=== PATIENT | female | born 1960 | race Caucasian/White ===

== ENCOUNTER 2020-05-01 16:45 | Observation (INO) | payer OTHER ==
[~2020-05-01] VITALS: Ht 162.6 cm; Wt 65.0 kg
[2020-05-01 16:48] VITALS: BP 143/50
[2020-05-01 17:06] LABS: ABSOLUTE BASOPHILS 0.1 thou/uL (0.0-0.2); ABSOLUTE EOSINOPHILS 0.4 thou/uL (0.0-0.7); ABSOLUTE LYMPHOCYTES 3.7 thou/uL (0.8-5.3); ABSOLUTE MONOCYTES 0.8 thou/uL (0.0-1.2); ABSOLUTE NEUTROPHILS 8.5 thou/uL (1.6-8.1); BASOPHILS 0.5 %; EOSINOPHILS 3.1 %; HEMATOCRIT 37.3 % (37.0-47.0); HEMOGLOBIN 12.9 gm/dL (12.0-15.0); LYMPHOCYTES 27.4 %; MCH 28.8 pg (26.0-34.0); MCHC 34.5 g/dL (28.0-37.0); MCV 83.5 fL (80.0-100.0); MONOCYTES 5.7 %; MPV 7.5 fl. (7.2-11.1); NUCLEATED RBCS 0 /100WBC; PLATELET COUNT* 232 thou/uL (150-400); POLYS 63.3 %; RBC 4.47 mil/uL (4.20-5.00); RDW-CV 13.1 % (10.5-14.5); WBC 13.4 thou/uL (4.0-11.0)
[2020-05-01 17:19] LABS: CALCIUM 8.6 mg/dL (8.5-10.1); CREATININE 0.9 mg/dL (0.6-1.3)
[2020-05-01 17:29] LABS: ALBUMIN 3.2 g/dL (3.4-5.0); MAGNESIUM 1.7 mg/dL (1.8-2.4); TOTAL BILIRUBIN 0.5 mg/dL (<0.1-1.0); TOTAL PROTEIN 6.6 g/dL (6.4-8.2)
[2020-05-01 20:03] VITALS: BP 125/88
[2020-05-01 20:15] VITALS: BP 120/63
[2020-05-01] MEDS ORDERED: LISINOPRIL10 MG PO (20:39)
[2020-05-01] MEDS ORDERED: HYDROCHLOROTHIA25 M1 PO (20:40)
[2020-05-02] VITALS (15 sets, daily range): BP systolic 103–1138; BP diastolic 43–73
[2020-05-02 05:24] LABS: MAGNESIUM 1.9 mg/dL (1.8-2.4); POTASSIUM 3.4 mmol/L (3.5-5.1)
[2020-05-02 08:36] LABS: POTASSIUM 2.9 mmol/L (3.5-5.1)
--- NOTE | 2020-05-02 11:05 | EKG ---
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[employer]: SUGAR : 1960 Requested By: Mitesh Cisse Order Number: [id number] MD: Kg Stallworth Measurements Intervals [place] Rate: 104 P: 74 FL: 170 QRS: 52 QRSD: 85 T: 81 QT: 343 QTc: 452 Interpretive Statements Sinus tachycardia Borderline ST depression, diffuse leads Compared to ECG 12/01/2007 10:58:25 ST (T wave) deviation now present Sinus rhythm no longer present Electronically Signed On 05-02-2020 11:05:32 CHERRY PICKER OPERATOR by Kg Stallworth [email or web address] <ELECTRONICALLY SIGNED> By: Kg Stallworth MD, [facility] 05/02/20 1105 1650 1650 Kg Stallworth MD, FAC /EPI
--- NOTE | 2020-05-02 12:37 | CARD ---
[address] [address] CARDIAC CATH REPORT Name: JESSE LEES Room: [facility] Richard#: [id number] Admission: 05/01/20 Attend Phys: Pepe Drummond MD Discharge: Date of : 58 Report #: [id number] THIS REPORT FOR: cc: FAM - No family physician/PCP FAM - No family physician/PCP ~ Patrick Castillo MD [facility] APPROVED REPORT Study performed: 05/02/2020 10:45:33 Patient Details Patient Status: In-Patient Room #: 227 The patient is a 59 year-old female Event Personnel Ej Molina RTR Monitor, Matty Rizo Honeycutt, Jillian RN RN, Patrick Castillo Voc[employer] Education Director Procedures Performed Left Heart Cath w/or w/o Coronaries [id number] [facility] Hemostasis w/ Mynx Indication Abnormal ECG, Chest pain Admission/Lab Medications/Medications given during procedure Fentanyl IV 25 mcg, Midazolam (Versed) IV 1 mg, Lidocaine Subcut 20 ml Procedure Narrative The patient was brought electively to the Cardiac Catheterization Laboratory and was prepped and draped in a sterile manner. The right femoral was infiltrated with 2% Lidocaine subcutaneous anesthesia. A 6 Fr [place] sheath was inserted into the right femoral artery. Coronary angiography was performed using coronary diagnostic catheters. The right coronary system was accessed and visualized with a Diagnostic JR4 6Fr catheter. The left coronary system was accessed and visualized with a Diagnostic JL4 6Fr catheter. The left ventricle was accessed and visualized with a Diagnostic Pigtail 6Fr catheter. The patient tolerated the procedure well and there were no complications associated with the procedure. There was no hematoma. Intraoperative [place] [address] CARDIAC CATH REPORT Name: JESSE LEES Kamran Room: [address]#: [id number] Admission: 05/01/20 Attend Phys: Pepe Drummond MD Discharge: Date of : 58 Report #: [id number] Sedation start time: 1100 Case end Time: 1115 Fentanyl 50 mcg Versed 2 mg Fluoro Time: 2.5 minutes Dose: DAP 06794 cGycm2 465.32 mGy Contrast Type and Amount: Visipaque 100 ml Diagnostic Cath Left Main The left main coronary artery is normal and bifurcates into a left anterior descending and circumflex coronary arteries. LAD The left anterior descending coronary artery is 20% plaque in the midportion. The distal vessel appears free of significant disease but is small in caliber. Diagonal 1 A moderate-sized branch 1st diagonal is normal. Circumflex The circumflex coronary artery is 10% plaque proximally. The distal vessel appears free of significant disease but very small in caliber. OM1 A moderate sized 1st obtuse marginal branch is normal. Right Coronary The right coronary artery is normal in its proximal mid and distal portion. R PDA The right PDA appears to be free of significant disease but is small in caliber. RPLV A right posterior lateral LV branch is free of significant disease. Left Ventriculography The left ventricle is normal in size with normal contractility. The left ventricular ejection fraction is estimated to be 60%. Left ventricular wall motion abnormalities are not present. Hemodynamics The aortic pressure is 122/96 mmHg with a mean of 50 mmHg. The left ventricular pressure is 125/4 mmHg with a mean of mmHg. The left ventricular end diastolic pressure is 12 mmHg. Conclusion #1. Minimal nonocclusive coronary artery disease. #2. Normal left ventricular end-diastolic pressure. #3. Normal left ventricular systolic function[place] [address] CARDIAC CATH REPORT Name: JESSE LEES Room: [address] Richard#: [id number] Admission: 05/01/20 Attend Phys: Pepe Drummond MD Discharge: Date of : 58 Report #: [id number] #1. Continue medical management and aggressive risk factor modification. <ELECTRONICALLY SIGNED> By: Patrick Castillo MD, [facility] 05/02/20 1237 1237 1237Micbernardo Castillo MD, FACC /INF
[2020-05-02 15:59] LABS: CHOLESTEROL 174 mg/dL (<200); HDL CHOLESTEROL 52 mg/dL (>40); LDL CHOLESTEROL 115 mg/dL (<100); TC:HDL 3.3 Ratio (Not establshd); TRIGLYCERIDE 39 mg/dL (<150); VLDL 8 mg/dL (<40)
[2020-05-02 16:00] LABS: SERUM ASSESSMENT CLEAR
[2020-05-02] MEDS ORDERED: NORVASC 2.5 MG2.5 M1 PO (16:40)
== END 2020-05-02 17:25 | disposition home or self-care (01) ==
LOC: M.ERS 16:45 → M.TBA-ER 18:34 → M.2W 18:34
PROVIDERS: Emergency Medicine Emergency Medical Services; Registered Nurse; ADMIT Internal Medicine; ATTEND Internal Medicine
DX: I25.10 Atherosclerotic heart disease of native coronary artery without angina pectoris (principal); I10 Essential (primary) hypertension; E87.6 Hypokalemia; F17.210 Nicotine dependence, cigarettes, uncomplicated; Z79.82 Long term (current) use of aspirin; Z79.899 Other long term (current) drug therapy; Z20.822 Contact with and (suspected) exposure to COVID-19